=== PATIENT | female | born 2000 | race Hispanic/Latino ===

== ENCOUNTER 2021-05-23 02:32 | Emergency (ER) | payer OTHER ==
[~2021-05-23] VITALS: Ht 162.6 cm; Wt 78.0 kg
[2021-05-23 02:42] VITALS: BP 124/64
[2021-05-23] MEDS ORDERED: NAPR500T6 PO (04:09)
[2021-05-23] MEDS ORDERED: KETOROLAC 60 MG VIAL (30MG/ML) IM ONE (04:30)
[2021-05-23] MEDS ORDERED: HYDROCODONE/ACETAMINOPHEN 5/325 MG TAB PO ONE (04:30)
[2021-05-23] MEDS ORDERED: KETOROLAC 60 MG VIAL (30MG/ML) ONE (04:32)
[2021-05-23] MEDS ORDERED: HYDROCODONE/ACETAMINOPHEN 5/325 MG TAB ONE (04:32)
[2021-05-23 04:51] VITALS: BP 124/74
== END 2021-05-23 04:51 | disposition home or self-care (01) ==
LOC: EDH 02:32
DX: S93.401A Sprain of unspecified ligament of right ankle, initial encounter (principal); S61.451A Open bite of right hand, initial encounter; Z79.1 Long term (current) use of non-steroidal anti-inflammatories (NSAID); F41.9 Anxiety disorder, unspecified; W54.0XXA Bitten by dog, initial encounter; Y93.89 Activity, other specified; Y92.89 Other specified places as the place of occurrence of the external cause; Y99.8 Other external cause status
CPT/HCPCS: 29515; 73610; 96372; 99283; J1885